=== PATIENT | male | born 1990 | race Caucasian/White ===

== ENCOUNTER 2023-03-07 10:52 | Emergency (ER) | payer OTHER ==
[2023-03-07] MEDS: Diphtheria,Pertussis(Acell),Tetanus Vaccine 0.5 ML Syringe IM ONE (12:09)
== END 2023-03-07 12:49 | disposition home or self-care (01) ==
LOC: LB.ED 10:52
DX: S01.81XA Laceration without foreign body of other part of head, initial encounter (principal); Z23 Encounter for immunization; W22.8XXA Striking against or struck by other objects, initial encounter; Y92.89 Other specified places as the place of occurrence of the external cause; Y99.0 Civilian activity done for income or pay
CPT/HCPCS: 12011; 70450; 90471; 90715; 99282; 99283-25